=== PATIENT | male | born 1975 | race Two or more races ===

== ENCOUNTER 2020-11-11 13:52 | Emergency (ER) | payer MEDICAID, OTHER ==
[~2020-11-11] VITALS: Ht 182.9 cm; Wt 99.8 kg
[2020-11-11 17:43] LABS: Basophils # (auto) 0 10 ^3/uL (0-0.2); Basophils % (auto) 0.4 % (0.0-2.0); Eosinophils # (auto) 0 10 ^3/uL (0-0.8); Eosinophils % (auto) 0.3 % (0.0-7.0); Hematocrit 41.8 % (41.0-53.0); Hemoglobin 14.4 g/dL (13.5-17.5); Lymphocytes # (auto) 1.9 10 ^3/uL (0.4-5.4); Mean Corpuscular Hemoglobin 30.4 pg (28.0-32.0); Mean Corpuscular Hgb Conc. 34.5 g/dL (32.0-36.0); Mean Corpuscular Volume 88.1 fL (80.0-100.0); Monocytes # (auto) 1.3 10 ^3/uL (0-1.3); Monocytes % (auto) 11.4 % (0.0-12.0); Neutrophils # (auto) 8.5 10 ^3/uL (1.6-8.6); Neutrophils % (auto) 71.9 % (37.0-80.0); Nucleated Red Blood Cells % 0.6 %; Platelet Count (auto) 281 10^3/uL (140-450); Red Blood Cells 4.75 10^6/uL (4.5-5.90); Red Cell Distribution Width 13.3 % (11.8-14.3); White Blood Cell 11.8 10^3/uL (4.4-10.8)
[2020-11-11 17:58] LABS: Albumin 4.3 g/dL (3.4-5.0); Anion Gap 8 (5-15); Blood Urea Nitrogen 14 mg/dL (7-18); Carbon Dioxide 23 mmol/L (21-32); Chloride 107 mmol/L (98-107); Glucose 95 mg/dL (74-106); Potassium 3.7 mmol/L (3.5-5.1); Sodium 138 mmol/L (136-145)
[2020-11-11 18:03] LABS: Alanine Aminotransferase 36 U/L (16-61); Alkaline Phosphatase 60 U/L (45-117); Aspartate Aminotransferase 30 U/L (15-37); BUN/Creatinine Ratio 15.7; Bilirubin, Total 0.7 mg/dL (0.2-1.0); Blood Alcohol < 3.0 mg/dL (0-5); GFR African American 120 mL/min; GFR Non-African American 99 mL/min; Total Protein 8.4 g/dL (6.4-8.2)
[2020-11-11] MEDS ORDERED: GABAPENTIN 300 MG CAP PO ONE (18:30)
[2020-11-11] MEDS ORDERED: LORazepam 0.5 MG TAB PO ONE (22:15)
[2020-11-12 03:29] LABS: Alcohol, Urine < 3.0 mg/dL (0-10); Amphetamine Screen, Urine POSITIVE (NEGATIVE); Barbiturate Scree,Urine NEGATIVE (NEGATIVE); Benzodiazephine Screen, Urine NEGATIVE (NEGATIVE); Cannabinoid Screen, Urine POSITIVE (NEGATIVE); Cocaine Screen, Urine NEGATIVE (NEGATIVE); Opiate Scree,Urine NEGATIVE (NEGATIVE); Phencyclidine Screen, Urine NEGATIVE (NEGATIVE)
[2020-11-12] MEDS ORDERED: LORazepam 0.5 MG TAB PO PRN (06:15)
[2020-11-12] MEDS ORDERED: GABAPENTIN 300 MG CAP PO ONE (08:30)
[2020-11-12] MEDS ORDERED: GABAPENTIN 100 MG CAP ONE (09:22)
[2020-11-12] MEDS: LORazepam 0.5 MG TAB PO PRN ×2 (09:23→16:15)
[2020-11-12] MEDS: risperiDONE 1 MG TAB PO SCH ×2 (09:24→23:29)
[2020-11-12] MEDS: HYDROcodone-ACET 5/325MG TAB PO SCH ×2 (09:24→23:29)
[2020-11-12] MEDS: DULoxetine HCL 30 MG CAP PO SCH (09:24)
[2020-11-12] MEDS ORDERED: risperiDONE 1 MG TAB PO ONE (10:00)
[2020-11-12] MEDS ORDERED: DULoxetine HCL 30 MG CAP PO ONE (10:00)
[2020-11-12] MEDS: GABAPENTIN 300 MG CAP PO SCH ×2 (16:15→23:23)
[2020-11-13] MEDS: GABAPENTIN 300 MG CAP PO SCH ×3 (06:05→21:59)
[2020-11-13] MEDS: DULoxetine HCL 30 MG CAP PO SCH ×2 (09:25→21:59)
[2020-11-13] MEDS: HYDROcodone-ACET 5/325MG TAB PO SCH ×2 (09:25→21:59)
[2020-11-13] MEDS: risperiDONE 1 MG TAB PO SCH ×2 (09:26→21:59)
[2020-11-13] MEDS: LORazepam 0.5 MG TAB PO PRN ×3 (09:33→21:01)
[2020-11-14] MEDS: LORazepam 0.5 MG TAB PO PRN ×2 (03:05→10:00)
[2020-11-14] MEDS: GABAPENTIN 300 MG CAP PO SCH ×3 (06:04→22:40)
[2020-11-14] MEDS: HYDROcodone-ACET 5/325MG TAB PO SCH ×2 (10:00→22:40)
[2020-11-14] MEDS: risperiDONE 1 MG TAB PO SCH ×2 (10:00→22:40)
[2020-11-14] MEDS ORDERED: OLANZapine 5 MG TAB PO ONE (11:15)
[2020-11-14] MEDS ORDERED: GABAPENTIN 300 MG CAP ONE (22:39)
[2020-11-14] MEDS ORDERED: HYDROcodone-ACET 5/325MG TAB ONE (22:39)
[2020-11-14] MEDS ORDERED: risperiDONE 1 MG TAB ONE (22:39)
[2020-11-15] MEDS ORDERED: LORazepam 0.5 MG TAB ONE (02:52)
[2020-11-15] MEDS: LORazepam 0.5 MG TAB PO PRN ×2 (03:29→09:42)
[2020-11-15] MEDS ORDERED: GABAPENTIN 300 MG CAP ONE (08:03)
[2020-11-15] MEDS: GABAPENTIN 300 MG CAP PO SCH (08:06)
[2020-11-15] MEDS: risperiDONE 1 MG TAB PO SCH (09:42)
[2020-11-15] MEDS: HYDROcodone-ACET 5/325MG TAB PO SCH (09:42)
[2020-11-15] MEDS: DULoxetine HCL 30 MG CAP PO SCH (09:42)
[2020-11-15 10:56] VITALS: BP 147/83
== END 2020-11-15 12:08 | disposition admitted as inpatient to this hospital (09) ==
LOC: ER 13:52 → EDBD 13:52 → ER 11-15 12:07
DX: R44.0 Auditory hallucinations (principal); K21.9 Gastro-esophageal reflux disease without esophagitis; F17.210 Nicotine dependence, cigarettes, uncomplicated; Z90.89 Acquired absence of other organs; Z20.822 Contact with and (suspected) exposure to COVID-19
CPT/HCPCS: 36415; 80053; 80307; 80320; 85025; 87426

== ENCOUNTER 2021-03-05 18:25 | Emergency (ER) | payer MEDICAID ==
[~2021-03-05] VITALS: Ht 188 cm; Wt 108.9 kg
[2021-03-05 18:45] VITALS: BP 146/104
[2021-03-05 19:50] LABS: Basophils # (auto) 0.1 10 ^3/uL (0-0.2); Basophils % (auto) 1.1 % (0.0-2.0); Eosinophils # (auto) 0.1 10 ^3/uL (0-0.8); Hematocrit 44.9 % (41.0-53.0); Hemoglobin 15.5 g/dL (13.5-17.5); Lymphocytes # (auto) 2.3 10 ^3/uL (0.4-5.4); Lymphocytes % (auto) 32.8 % (10.0-50.0); Mean Corpuscular Hemoglobin 30.5 pg (28.0-32.0); Mean Corpuscular Hgb Conc. 34.5 g/dL (32.0-36.0); Mean Corpuscular Volume 88.2 fL (80.0-100.0); Monocytes # (auto) 0.8 10 ^3/uL (0-1.3); Monocytes % (auto) 11.3 % (0.0-12.0); Neutrophils # (auto) 3.8 10 ^3/uL (1.6-8.6); Neutrophils % (auto) 53.8 % (37.0-80.0); Nucleated Red Blood Cells % 0.1 %; Red Cell Distribution Width 13.4 % (11.8-14.3)
[2021-03-05 19:56] LABS: Urine Bacteria NONE SEEN /hpf (None Seen); Urine Blood Negative /uL (Negative); Urine Hyaline Cast FEW /lpf (0 - 2); Urine Mucus FEW (None Seen); Urine WBC 10 /hpf (0 - 3)
[2021-03-05 19:56] LABS: Albumin 4.4 g/dL (3.4-5.0); Calcium 9.3 mg/dL (8.5-10.1); Salicylate 2.2 mg/dL (2.8-20.0)
[2021-03-05 19:59] LABS: BUN/Creatinine Ratio 14.9; Bilirubin, Total 0.5 mg/dL (0.2-1.0); Total Protein 8.3 g/dL (6.4-8.2)
[2021-03-05 20:03] LABS: Acetaminophen < 2.0 ug/mL (10-30)
[2021-03-05 20:13] LABS: Amphetamine Screen, Urine POSITIVE (NEGATIVE); Barbiturate Scree,Urine NEGATIVE (NEGATIVE); Benzodiazephine Screen, Urine NEGATIVE (NEGATIVE); Cocaine Screen, Urine NEGATIVE (NEGATIVE); Phencyclidine Screen, Urine NEGATIVE (NEGATIVE)
[2021-03-05 20:20] LABS: Cannabinoid Screen, Urine POSITIVE (NEGATIVE); Opiate Scree,Urine NEGATIVE (NEGATIVE)
== END 2021-03-06 00:30 | disposition left against medical advice (07) ==
LOC: ER 18:26
DX: R45.851 Suicidal ideations (principal); R44.0 Auditory hallucinations; K21.9 Gastro-esophageal reflux disease without esophagitis; F17.210 Nicotine dependence, cigarettes, uncomplicated; Z90.49 Acquired absence of other specified parts of digestive tract
CPT/HCPCS: 36415; 80053; 80307; 80329; 81001; 85025

== ENCOUNTER 2021-03-17 17:06 | Emergency (ER) | payer MEDICAID ==
[~2021-03-17] VITALS: Ht 188 cm; Wt 102.1 kg
[2021-03-17 17:17] VITALS: BP 108/87
== END 2021-03-17 18:09 | disposition left against medical advice (07) ==
LOC: ER 17:07
DX: R11.2 Nausea with vomiting, unspecified (principal); E78.5 Hyperlipidemia, unspecified; R42 Dizziness and giddiness; Z53.21 Procedure and treatment not carried out due to patient leaving prior to being seen by health care provider
CPT/HCPCS: 93005

== ENCOUNTER 2021-04-26 10:15 | Emergency (ER) | payer MEDICAID ==
[~2021-04-26] VITALS: Ht 188 cm; Wt 102.1 kg
[2021-04-26 11:08] LABS: Urine WBC None Seen /hpf (0 - 3)
[2021-04-26 11:24] LABS: Alcohol, Urine < 3.0 mg/dL (0-10); Amphetamine Screen, Urine NEGATIVE (NEGATIVE); Barbiturate Scree,Urine NEGATIVE (NEGATIVE); Benzodiazephine Screen, Urine NEGATIVE (NEGATIVE); Cannabinoid Screen, Urine POSITIVE (NEGATIVE); Cocaine Screen, Urine NEGATIVE (NEGATIVE); Opiate Scree,Urine NEGATIVE (NEGATIVE); Phencyclidine Screen, Urine NEGATIVE (NEGATIVE)
[2021-04-26 11:31] LABS: Basophils # (auto) 0 10 ^3/uL (0-0.2); Basophils % (auto) 0.4 % (0.0-2.0); Eosinophils # (auto) 0 10 ^3/uL (0-0.8); Eosinophils % (auto) 0.2 % (0.0-7.0); Hematocrit 42.1 % (41.0-53.0); Lymphocytes # (auto) 1.4 10 ^3/uL (0.4-5.4); Lymphocytes % (auto) 22.7 % (10.0-50.0); Mean Corpuscular Hemoglobin 30.1 pg (28.0-32.0); Mean Corpuscular Hgb Conc. 33.3 g/dL (32.0-36.0); Mean Corpuscular Volume 90.5 fL (80.0-100.0); Monocytes # (auto) 0.6 10 ^3/uL (0-1.3); Neutrophils % (auto) 66.7 % (37.0-80.0); Red Blood Cells 4.65 10^6/uL (4.5-5.90); Red Cell Distribution Width 13.3 % (11.8-14.3)
[2021-04-26 11:34] LABS: Urine Bacteria NONE SEEN /hpf (None Seen); Urine Blood Negative /uL (Negative); Urine Specific Gravity 1.006 (1.001-1.035)
[2021-04-26 11:45] LABS: Albumin 3.6 g/dL (3.4-5.0); Anion Gap 7 (5-15); Blood Urea Nitrogen 10 mg/dL (7-18); Calcium 8.4 mg/dL (8.5-10.1); Carbon Dioxide 22 mmol/L (21-32); Chloride 108 mmol/L (98-107); Glucose 101 mg/dL (74-106); Magnesium 2.1 mg/dL (1.6-2.6); Potassium 3.8 mmol/L (3.5-5.1); Sodium 137 mmol/L (136-145)
[2021-04-26 11:50] LABS: Alanine Aminotransferase 29 U/L (16-61); Alkaline Phosphatase 52 U/L (45-117); Aspartate Aminotransferase 11 U/L (15-37); BUN/Creatinine Ratio 11.4; Bilirubin, Total 0.2 mg/dL (0.2-1.0); GFR African American 121 mL/min; GFR Non-African American 100 mL/min; Total Protein 7.4 g/dL (6.4-8.2)
[2021-04-26] MEDS ORDERED: ACETAMINOPHEN 500 MG TAB PO ONE (13:58)
[2021-04-26 18:16] VITALS: BP 140/67
== END 2021-04-26 18:20 | disposition home or self-care (01) ==
LOC: ER 10:15
DX: K40.90 Unilateral inguinal hernia, without obstruction or gangrene, not specified as recurrent (principal); K57.30 Diverticulosis of large intestine without perforation or abscess without bleeding; K21.9 Gastro-esophageal reflux disease without esophagitis; F17.210 Nicotine dependence, cigarettes, uncomplicated; Z90.49 Acquired absence of other specified parts of digestive tract
CPT/HCPCS: 36415; 70450; 74176; 80053; 80307; 81001; 83690; 83735; 84484; 85025

== ENCOUNTER 2021-12-29 10:05 | Emergency (ER) | payer MEDICAID ==
[~2021-12-29] VITALS: Ht 185.4 cm; Wt 111.1 kg
[2021-12-29] MEDS ORDERED: LORazepam 2MG/ML-1ML VIAL IM ONE (12:15)
[2021-12-29] MEDS ORDERED: RISP3TAB41 PO (16:15)
[2021-12-29] MEDS ORDERED: SERT50TA PO (16:15)
[2021-12-29] MEDS ORDERED: DIVA125T12 PO (16:15)
[2021-12-29 16:26] VITALS: BP 145/98
== END 2021-12-29 16:36 | disposition home or self-care (01) ==
LOC: EDUNIT# 10:05 → EDBD 10:05 → ER 10:05
DX: F41.9 Anxiety disorder, unspecified (principal); I10 Essential (primary) hypertension; F17.210 Nicotine dependence, cigarettes, uncomplicated; F12.10 Cannabis abuse, uncomplicated; F15.10 Other stimulant abuse, uncomplicated; F32.9 Major depressive disorder, single episode, unspecified; K21.9 Gastro-esophageal reflux disease without esophagitis
CPT/HCPCS: 93005; 96372; 99283; J2060

== ENCOUNTER 2022-02-26 17:09 | Emergency (ER) | payer SELFPAY ==
[~2022-02-26 17:09] MED LIST: DIVA125T12 PO; RISP3TAB41 PO; SERT50TA PO
== END 2022-02-26 17:39 | disposition left against medical advice (07) ==
LOC: EDUNIT# 17:09 → EDBD 17:09 → ER 17:17
DX: R51.9 Headache, unspecified (principal); M54.9 Dorsalgia, unspecified; Z53.21 Procedure and treatment not carried out due to patient leaving prior to being seen by health care provider